=== PATIENT | male | born 1945 | race Caucasian/White ===

== ENCOUNTER 2017-11-10 15:47 | Emergency (ER) | payer OTHER, MEDICAID ==
[2017-11-10 16:26] LABS: ADD MAN DIFF? NO
[2017-11-10 16:29] LABS: BASOPHIL # 0.1 10^3/ul (0.0-0.1); BASOPHILS % 1.3 % (0.0-2.0); EOSINOPHILS # 0.1 10^3/ul (0.0-0.5); EOSINOPHILS % 1.5 % (0.0-7.0); HEMATOCRIT 34.2 % (42.0-52.0); HEMOGLOBIN 11.2 g/dl (14.0-18.0); LYMPHOCYTES # 2.5 10^3/ul (0.8-2.9); LYMPHOCYTES % 41.1 % (15.0-51.0); MEAN CORPUSCULAR HEMOGLOBIN 29.7 pg (29.0-33.0); MEAN CORPUSCULAR HGB CONC 32.7 g/dl (32.0-37.0); MEAN CORPUSCULAR VOLUME 90.7 fl (82.0-101.0); MEAN PLATELET VOLUME 9.1 fl (7.4-10.4); MONOCYTE # 0.6 10^3/ul (0.3-0.9); MONOCYTES % 9.2 % (0.0-11.0); NEUTROPHIL # 2.8 10^3/ul (1.6-7.5); NEUTROPHILS % 46.7 % (39.0-77.0); PLATELET COUNT 334 10^3/UL (140-415); RED BLOOD COUNT 3.77 10^6/ul (4.70-6.10); RED CELL DISTRIBUTION WIDTH 15.9 % (11.5-14.5)
[2017-11-10 16:36] LABS: ADD UMIC NO; UR ASCORBIC ACID NEGATIVE (NEGATIVE); UR BILIRUBIN (Dip) NEGATIVE (NEGATIVE); UR BLOOD (Dip) NEGATIVE (NEGATIVE); UR CLARITY CLEAR (CLEAR); UR COLOR YELLOW (YELLOW); UR GLUCOSE (Dip) NEGATIVE (NEGATIVE); UR KETONES (Dip) TRACE mg/dL (NEGATIVE); UR LEUKOCYTE ESTERASE (Dip) NEGATIVE Leu/ul (NEGATIVE); UR NITRITE (Dip) NEGATIVE (NEGATIVE); UR SPECIFIC GRAVITY (Dip) 1.026 (1.003-1.030); UR TOTAL PROTEIN (Dip) NEGATIVE (NEGATIVE); UR UROBILINOGEN (Dip) 1+ mg/dL (NEGATIVE)
[2017-11-10 16:45] LABS: INR 0.94; PROTIME 12.7 Sec (11.9-14.9)
[2017-11-10 16:46] LABS: PARTIAL THROMBOPLASTIN TIME 27.5 Sec (25.0-35.0)
[2017-11-10 16:49] LABS: ANION GAP 15 (8-16); BLOOD UREA NITROGEN 16 mg/dl (7-20); CALCIUM 9.1 mg/dl (8.4-10.2); CARBON DIOXIDE 22 mmol/L (21-31); CHLORIDE 108 mmol/L (97-110); CREATININE 1.25 mg/dl (0.61-1.24); GLUCOSE 181 mg/dl (70-220); POTASSIUM 4.3 mmol/L (3.5-5.1); SODIUM 141 mmol/L (135-144)
[2017-11-10 17:02] LABS: B-TYPE NATRIURETIC PEPTIDE 77 PG/ML (0-125); TROPONIN-I < 0.010 ng/ml (0.000-0.120)
[2017-11-10 17:18] LABS: CREATINE KINASE 160 IU/L (23-200)
[2017-11-10] MEDS: LIDOCAINE/MYLANTA 40 ML BTL PO (17:21)
[2017-11-10] MEDS: SOD CHLORIDE 0.9% 500 ML IV (17:21)
[2017-11-10] MEDS: ASPIRIN 325 MG TAB PO (17:21)
[2017-11-10 17:31] LABS: CK INDEX 1.8; CK-MB 2.84 ng/ml (0.0-2.4); TROPONIN-I < 0.010 ng/ml (0.000-0.120)
[2017-11-10] MEDS: KETOROLAC 15 MG INJ IV (18:34)
== END 2017-11-10 19:14 | disposition home or self-care (01) ==
LOC: E/R 15:47
DX: M94.0 Chondrocostal junction syndrome [Tietze] (principal); K21.9 Gastro-esophageal reflux disease without esophagitis; N28.9 Disorder of kidney and ureter, unspecified; I10 Essential (primary) hypertension; E11.9 Type 2 diabetes mellitus without complications; Z87.891 Personal history of nicotine dependence; Z79.82 Long term (current) use of aspirin; Z79.84 Long term (current) use of oral hypoglycemic drugs
CPT/HCPCS: 36415; 71045; 80048; 81003; 82550; 82553; 83880; 84484; 85025; 85610; 85730; 93005; 96374; 99285-25